=== PATIENT | female | born 1945 | race Caucasian/White ===

== ENCOUNTER 2016-08-30 05:24 | Inpatient (IN) | payer OTHER ==
[2016-08-19 15:11] VITALS: BMI 27.0
--- NOTE | 2016-08-19 15:44 | PAT Medication Instructions ---
Service Date Aug 19, 2016. Current Home Medication List Cholecalciferol (Vitamin D3), 1 TAB PO DAILY PRN for PRN Gabapentin (Neurontin), 300 MG PO BID Hydrocodone/Acetaminophen 5MG/325MG (Ephraim 5MG/325MG), 1-2 TABLETS PO Q4 PRN for Pain Olmesartan/Hctz (Benicar Hct 40/25), 1 TAB PO QAM Simvastatin (Zocor), 20 MG PO QPM Medication Instructions For Your Scheduled Surgery - Hold the following medications the morning of surgery: Olmesartan/Hctz (Benicar Hct 40/25), 1 TAB PO QAM Cholecalciferol (Vitamin D3), 1 TAB PO DAILY PRN for PRN - Take the following medications the morning of surgery with a sip of water: Gabapentin (Neurontin), 300 MG PO BID Hydrocodone/Acetaminophen 5MG/325MG (Ephraim 5MG/325MG), 1-2 TABLETS PO Q4 PRN for Pain (okay to take up to 4 hours prior to surgery if needed) - Take the following medications as scheduled the night before surgery: Simvastatin (Zocor), 20 MG PO QPM Gabapentin (Neurontin), 300 MG PO BID Hydrocodone/Acetaminophen 5MG/325MG (Ephraim 5MG/325MG), 1-2 TABLETS PO Q4 PRN for Pain If you have any questions please call us at [phone] (Germaine Shaffer PA-C) or [phone] or [phone]
[2016-08-19 16:10] LABS: BASO % 0.2 %; BASO ABS # 0.01 K/uL (0-0.2); COMPLETE YES; EOS % 1.6 %; HEMATOCRIT 39.1 % (37-47); LYMPH % 36.9 %; LYMPH ABS # 2.07 K/uL (1.2-3.4); MEAN CELL VOLUME 89.9 fL (80-100); MEAN CORPUSCULAR HEMOGLOBIN 30.6 pg (25-34); MEAN PLATELET VOLUME 10.2 fL (7.4-10.4); MONO % 7.1 %; NEUT % 54.2 %; PLATELET COUNT 245 K/uL (130-400); RED BLOOD COUNT 4.35 M/uL (4.2-5.4); WHITE BLOOD COUNT 5.61 K/uL (4.8-10.8)
[2016-08-19 16:14] LABS: URINE APPEARANCE CLEAR (CLEAR); URINE BILIRUBIN NEG (NEG); URINE COLOR YELLOW; URINE NITRITE NEG (NEG); URINE SPECIFIC GRAVITY 1.013 (1.000-1.030); UROBILINOGEN NEG (NEG)
[2016-08-19 16:16] LABS: MANUAL MICROSCOPIC REQUIRED? NO; REVIEW REQ? NO
[2016-08-19 16:20] LABS: PROTHROMBIN TIME (PATIENT) 10.7 SECONDS (9.0-12.0)
--- NOTE | 2016-08-19 16:20 | DIAGNOSTIC IMAGING REPORT ---
CHEST 2 VIEWS ROUTINE CLINICAL HISTORY: Preoperative chest COMPARISON STUDY: No previous studies for comparison. FINDINGS: The heart is normal in size. There is a prominent right cardiophrenic angle fat pad. There is mild basilar interstitial thickening/atelectasis. There is no lobar consolidation. There is no overt failure. There are no pleural effusions.[ IMPRESSION: Mild bibasal interstitial thickening/atelectasis. Electronically signed by: Avi Gregory M.D. 08/19/2016 4:19 PM Dictated Date/Time: 08/19/2016 4:12 PM
[2016-08-19 16:29] LABS: BUN/CREATININE RATIO 10.5 (10-20); CALCIUM 9.2 mg/dl (8.5-10.1); CREATININE 0.79 mg/dl (0.60-1.20); POTASSIUM 3.8 mmol/L (3.5-5.1)
--- NOTE | 2016-08-27 15:28 | HISTORY & PHYSICAL EXAMINATION ---
DATE OF ADMISSION: 08/30/2016 HISTORY OF PRESENT ILLNESS: She is being preoped for an anterior cervical discectomy 3 levels C3-4, C4-5 and C5-6 cervical spine. She has neck pain, arm pain, trapezius pain without any red flags of fevers, sweats, chills, bowel and bladder issues. PAST MEDICAL HISTORY: Hypertension, usual childhood diseases. No kidney disease, liver disease. No acid reflux. No carcinoma. No diabetes. PAST SURGICAL HISTORY: Cholecystectomy, hysterectomy, appendectomy, total knee replacement. ALLERGIES: Negative. MEDICATIONS: Neurontin, simvastatin and Benicar. SOCIAL HISTORY: She is , rarely drinks, [id number] history of smoking, moderately active, retired. REVIEW OF SYSTEMS: Denies blurred vision, double vision, tinnitus, vertigo. Denies any mentation issues such as depression, denied any shortness breath, chronic cough. No angina, chest pain, palpitations. Denies adenopathy. Denies nausea, vomiting, urgency, frequency, dysuria. OBJECTIVE: GENERAL: She is alert, oriented, 71-year-old female. VITAL SIGNS: Blood pressure 130/80, pulse of 80, respiratory rate 16, temperature 97.4, 5 foot 4, 158 pounds. CARDIAC: Normal S1, S2, no S3. LUNGS: Clear to auscultation. No rales, rhonchi, or wheezing. ABDOMEN: Soft, nontender, bowel sounds present. 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 Images demonstrate severe collapse of the disc interval at C3-4, C4-5 and C5-6. MRI scan supports the plain film. IMPRESSION: Cervical spondylosis, instability and compression cervical spine. DISPOSITION: Includes an ACDF at multiple levels cervical spine C3-4, C4-5 and C5-6.
[~2016-08-30] VITALS: Ht 162.6 cm; Wt 76.6 kg
[2016-08-30] VITALS (28 sets, daily range): BP systolic 116–164; BP diastolic 45–104; PULSE 67–99; TEMP 36.4–36.6; O2SAT 89–99; Ht 162.6 cm; Wt 76.6 kg
[~2016-08-30 05:24] MED LIST: BNC/4025 PO; CHOL1000 PO; GABA1CAP5 PO; HYDR-5688 PO; SIMV20TA2 PO
[2016-08-30] MEDS ORDERED: NSS 1000ML IV SCH (06:00)
[2016-08-30] MEDS: CEFAZOLIN 2000 MG/60 ML D5W 60 ML IV SCH ×2 (06:00→07:32)
[2016-08-30] MEDS ORDERED: LACTATED RINGER'S 1000ML 1,000 ML IV SCH (06:00)
[2016-08-30] MEDS ORDERED: BUPIVACAINE/EPINEPHRINE 0.5% MPF 1:200,000 30 ML VIAL ONE (07:04)
[2016-08-30] MEDS ORDERED: GELATIN SPONGE SZ 100 ONE (07:04)
[2016-08-30] MEDS ORDERED: BACITRACIN 50000 UNIT VIAL ONE (07:04)
[2016-08-30] MEDS ORDERED: THROMBIN FOR SOLN 20000 UNIT KIT ONE (07:04)
--- NOTE | 2016-08-30 07:14 | History & Physical Bridge Note ---
H&P Re-Evaluation Bridge Note: I have examined the patient, reviewed the History & Physical and in the interval since the performance of the History & Physical I have noted the following changes of clinical significance: Iliac crest graft
[2016-08-30] MEDS ORDERED: DEXAMETHASONE SOD INJ 4 MG/ML VIAL ONE (07:16)
[2016-08-30] MEDS ORDERED: ONDANSETRON INJ 2 MG/ML 2 ML VIAL ONE ×2 (07:16→08:33)
[2016-08-30] MEDS ORDERED: LIDOCAINE HCL 2% 2 ML VIAL (20MG/ML) ONE (07:16)
[2016-08-30] MEDS ORDERED: NEOSTIGMINE METHYLSULFATE 5 MG/5 ML SYR ONE (07:16)
[2016-08-30] MEDS ORDERED: PROPOFOL IV EMULSION 10 MG/ML 20 ML VIAL IV ONE (07:16)
[2016-08-30] MEDS ORDERED: ROCURONIUM BROMIDE 10 MG/ML 5 ML VIAL ONE (07:16)
[2016-08-30] MEDS ORDERED: GLYCOPYRROLATE INJ 0.2 MG/ML VIAL ONE (07:16)
[2016-08-30] MEDS ORDERED: FENTANYL CITRATE INJ 50 MCG/1 ML 2 ML VIAL ONE ×3 (07:16→10:33)
[2016-08-30] MEDS ORDERED: KETAMINE HCL INJ 50 MG/ML 10 ML VIAL ONE (08:07)
[2016-08-30] MEDS ORDERED: HYDROmorphone INJ 2 MG/ML SYR/VIAL ONE ×2 (08:08→10:38)
[2016-08-30] MEDS ORDERED: PHENYLEPHRINE HCL INJ 10 MG/ML VIAL ONE (08:53)
--- NOTE | 2016-08-30 10:22 | DIAGNOSTIC IMAGING REPORT ---
Intraoperative lumbar spine single view CLINICAL HISTORY: ACDF C3-6 COMPARISON STUDY: No previous studies for comparison. FINDINGS: 3 seconds of fluoroscopic time was utilized. A single lateral view reveals postsurgical changes of anterior discectomies and fusion at the C3-4, C4-5, and C5-6 levels. The posterior radiopaque marker at the C5-6 level, projects just slightly posterior to the posterior margins of the vertebral bodies. IMPRESSION: Intraoperative radiograph demonstrating anterior cervical discectomy and fusion at the C3-4, C4-5, and C5-6 levels. Electronically signed by: Avi Gregory M.D. 08/30/2016 10:20 AM Dictated Date/Time: 08/30/2016 10:19 AM
[2016-08-30] MEDS ORDERED: ESMOLOL HCL 10 MG/ML 10 ML VIAL ONE (10:27)
[2016-08-30] MEDS ORDERED: LABETALOL HCL IV 5 MG/ML 20ML IV ONE (10:27)
--- NOTE | 2016-08-30 10:28 | [facility] Post Operative Brief Note ---
Immediate Operative Summary Operative Date Aug 30, 2016. Pre-Operative Diagnosis Cervical Spondylosis, herniation Post-Operative Diagnosis Cervical Spondylosis, herniation Procedure(s) Performed C3-C4, C4-C5, C5-C6 Anterior Cervical Discectomy and Fusion with Iliac Crest Bone Graft Surgeon Dr. Vang Corporate Legal Assistant Surgeon(s) Dash Shukla, PAC Estimated Blood Loss 100 ml Findings cord compression Specimens none per surgeon Complication(s) None Disposition Recovery Room / PACU
[2016-08-30] MEDS ORDERED: LORAZEPAM 0.5 MG TAB PO PRN (10:30)
[2016-08-30] MEDS ORDERED: LORAZEPAM INJ 0.5 MG in SYRINGE 0.75 ML IV PRN (10:30)
[2016-08-30] MEDS ORDERED: MAGNESIUM HYDROXIDE SUSP 30 ML UDC PO PRN (10:30)
[2016-08-30] MEDS ORDERED: ACETAMINOPHEN IV 100 ML IV PRN (10:30)
[2016-08-30] MEDS ORDERED: HYDROCODONE/ACETAMOPHEN 5/325MG TAB PO PRN (10:30)
[2016-08-30] MEDS ORDERED: NALOXONE HCL 0.4 MG/1 ML VIAL/CARP IV PRN ×2 (10:30→10:45)
[2016-08-30] MEDS ORDERED: ONDANSETRON INJ 2 MG/ML 2 ML VIAL IV PRN ×2 (10:30→10:45)
[2016-08-30] MEDS ORDERED: RACEPINEPHRINE 2.25% NEBU SOLN 0.5 ML VIAL INH PRN (10:30)
[2016-08-30] MEDS ORDERED: DEXAMETHASONE INJ 8 MG in SYRINGE 0 ML IV PRN (10:30)
[2016-08-30] MEDS ORDERED: HYDROmorphone INJ 0.5 MG/0.5 ML SYR IV PRN (10:30)
[2016-08-30] MEDS: LABETALOL HCL IV 5 MG/ML 20ML IV PRN ×2 (10:40→11:06)
[2016-08-30] MEDS ORDERED: FLUMAZENIL 0.1 MG/1 ML 10 ML VIAL IV PRN (10:45)
[2016-08-30] MEDS ORDERED: EpHEDrine SULFATE INJ 50 MG/ML AMP IV PRN (10:45)
[2016-08-30] MEDS ORDERED: PROMETHAZINE HCL INJ 12.5 MG in SODIUM CHLORIDE 0.9% 50ML 50 ML IV PRN (10:45)
[2016-08-30] MEDS ORDERED: ATROPINE SULFATE 0.1 MG/ML 5ML SYR IV PRN (10:45)
[2016-08-30] MEDS ORDERED: HYDROmorphone INJ 1 MG/ML SYR IV PRN (10:45)
--- NOTE | 2016-08-30 11:53 | Anesthesiology Progress Note ---
Anesthesia Post Op Note Date & Time Aug 30, 2016 at 11:51 Vital Signs Pain Intensity: 0 Vital Signs Past 12 Hours Date Time Temp Pulse Resp B/P Pulse Ox O2 Delivery O2 Flow Rate FiO2 08/30/16 11:20 36.0 64 20 114/59 96 Nasal Cannula 4 08/30/16 11:10 78 20 133/64 96 Nasal Cannula 4 08/30/16 11:00 75 20 151/87 97 Mask 10 08/30/16 10:50 69 20 139/59 97 Mask 10 08/30/16 10:41 65 20 126/53 94 Mask 10 08/30/16 10:34 36.0 72 20 174/60 97 Mask 10 08/30/16 05:58 36.6 76 18 134/45 97 Room Air Notes Mental Status: alert / awake / arousable, participated in evaluation Pt Amnestic to Procedure: Yes Nausea / Vomiting: adequately controlled Pain: adequately controlled Airway Patency, RR, SpO2: stable & adequate BP & HR: stable & adequate Hydration State: stable & adequate Anesthetic Complications: no major complications apparent Pt is w/o difficulty swallowing or breathing.Surgical site appears w/ minimal swelling.
[2016-08-30] MEDS: SODIUM CHLORIDE 0.9% 1000ML 1,000 ML IV SCH (13:06)
[2016-08-30] MEDS ORDERED: IV FLUIDS COMPLETED PRN (15:00)
--- NOTE | 2016-08-30 16:10 | ORTHOPEDICS PROGRESS NOTE ---
DATE OF ADMISSION: 08/30/2016 SUBJECTIVE: Seen, visited and evaluated on rounds at the [facility] ICU bed 2. OBJECTIVE: She is alert stable. Answers appropriately. No shortness of breath. No dysphagia. No chest pain. ASSESSMENT: Status post multilevel C-spine surgery for cord compression. DISPOSITION: Medical management and medical support, cervical collar, we will allow her clear liquids, we will hopefully get her out of bed and up to a regular floor tomorrow which is the 4th and discharge home on the .
[2016-08-30] MEDS: CEFAZOLIN IV 1,000 MG in DEXTROSE 5% 50ML 50 ML IV SCH (16:14)
[2016-08-30] MEDS: DEXAMETHASONE INJ 6 MG in SYRINGE 0 ML IV SCH (16:14)
[2016-08-30] MEDS: HYDROmorphone INJ 1 MG/ML SYR IV PRN ×2 (19:12→22:13)
[2016-08-30] MEDS: DOCUSATE SODIUM 100 MG CAP PO SCH (20:31)
[2016-08-30] MEDS: GABAPENTIN 300 MG CAP PO SCH (20:32)
[2016-08-30] MEDS ORDERED: SIMVASTATIN 20 MG TAB PO SCH (21:00)
[2016-08-31] VITALS (11 sets, daily range): BP systolic 126–169; BP diastolic 63–85; PULSE 92–103; TEMP 36.6–36.9; O2SAT 91–97
[2016-08-31] MEDS: CEFAZOLIN IV 1,000 MG in DEXTROSE 5% 50ML 50 ML IV SCH ×2 (00:20→08:00)
[2016-08-31] MEDS: DEXAMETHASONE INJ 6 MG in SYRINGE 0 ML IV SCH ×2 (00:20→08:00)
[2016-08-31] MEDS: SODIUM CHLORIDE 0.9% 1000ML 1,000 ML IV SCH (02:11)
[2016-08-31] MEDS: HYDROmorphone INJ 1 MG/ML SYR IV PRN (03:16)
--- NOTE | 2016-08-31 07:38 | Anesthesiology Progress Note ---
Anesthesia Post Op Note Date & Time Aug 31, 2016 at 07:38 Vital Signs Pain Intensity: 3.0 Vital Signs Past 12 Hours Date Time Temp Pulse Resp B/P Pulse Ox O2 Delivery O2 Flow Rate FiO2 08/31/16 06:01 103 14 158/85 96 Nasal Cannula 2.0 08/31/16 04:00 Nasal Cannula 2.0 08/31/16 04:00 36.6 97 21 136/63 95 Nasal Cannula 2.0 08/31/16 02:01 100 16 150/84 97 Nasal Cannula 2.0 08/31/16 00:00 36.8 16 126/65 96 Nasal Cannula 2.0 08/31/16 00:00 Nasal Cannula 2.0 08/30/16 23:40 90 16 95 Nasal Cannula 2.0 08/30/16 22:00 97 18 149/75 95 Nasal Cannula 2.0 08/30/16 20:01 87 16 96 Nasal Cannula 2.0 08/30/16 20:00 36.6 99 20 164/97 97 Nasal Cannula 2.0 08/30/16 20:00 97 Nasal Cannula 2.0 08/30/16 20:00 36.6 99 20 164/97 97 Nasal Cannula 2.0 Notes Mental Status: alert / awake / arousable, participated in evaluation Pt Amnestic to Procedure: Yes Nausea / Vomiting: adequately controlled Pain: adequately controlled Airway Patency, RR, SpO2: stable & adequate BP & HR: stable & adequate Hydration State: stable & adequate Anesthetic Complications: no major complications apparent
[2016-08-31] MEDS: DOCUSATE SODIUM 100 MG CAP PO SCH (08:01)
[2016-08-31] MEDS: GABAPENTIN 300 MG CAP PO SCH (08:01)
[2016-08-31] MEDS ORDERED: OLMESARTAN MEDOXOMIL 40 MG TAB PO SCH (09:00)
[2016-08-31] MEDS ORDERED: NON-FORMULARY MEDICATION (Olmesartan/Hctz (Benicar Hct 40/25) 1 TAB) PO SCH (09:00)
[2016-08-31] MEDS ORDERED: HYDROCHLOROTHIAZIDE 25 MG TAB PO SCH (09:00)
[2016-08-31] MEDS: OXYCODONE/ACETAMINOPHEN 5-325 TAB PO PRN ×2 (11:00→16:22)
[2016-08-31] MEDS ORDERED: HYDR-5688 PO (17:21)
--- NOTE | 2016-08-31 18:37 | Discharge Instructions ---
Discharge Instructions Date of Service Aug 31, 2016. Admission Reason for Admission: Cervical Disc Herniation, Degenerative Disc Diseas Discharge Discharge Diagnosis / Problem: cord compression Discharge Goals Goal(s): Improve function Activity Recommendations Activity Limitations: as noted below Lifting Limitations: no more than 5 pounds, until after follow-up appointment Exercise/Sports Limitations: until after follow-up appointment May Resume Sexual Activity: after follow-up appointment Shower/Bathe: keep incision dry Driving or Machine Use: home ,rest, recover . Current Hospital Diet Patient's current hospital diet: Full Liquid Diet Discharge Diet Recommended Diet: Full Liquid Diet Fluid Restriction: None Liquid Consistency: [place] Thick Procedures Procedures Performed: C3-C4, C4-C5, C5-C6 Anterior Cervical Discectomy and Fusion with Iliac Crest Bone Graft Pending Studies Studies pending at discharge: no Medical Emergencies . Who to Call and When: Medical Emergencies: If at any time you feel your situation is an emergency, please call 911 immediately. . Non-Emergent Contact Non-Emergency issues call your: Surgeon Call Non-Emergent contact if: you have any medication questions . "Provider Documentation" section prepared by Yannick Vang. VTE Core Measure Inpt VTE Proph given/why not?: Treatment not indicated
[2016-09-01] MEDS ORDERED: BISACODYL 10 MG SUPP PR PRN (06:00)
[2016-09-01] MEDS ORDERED: BISACODYL 5 MG TABEC PO PRN (06:00)
--- NOTE | 2016-09-01 10:23 | OPERATIVE REPORT ---
DATE OF OPERATION: 08/30/2016 PREOPERATIVE DIAGNOSIS: Spinal cord compression, C3-4, C4-5, C5-6 cervical spine. POSTOPERATIVE DIAGNOSIS: Same. PROCEDURE: Included a 3-level ACDF cervical spine, iliac crest bone grafting. We used implant from the [employer] called [employer]. COMPLICATIONS: Zero. BLOOD LOSS: 100 mL. SURGEON: Dr. Vang. PATIENT EXPERIENCE COORDINATOR: Dash Shukla PA-C. ANESTHESIA: General. OPERATION AND FINDINGS: The patient was taken to the operating room, generally intubated anesthetic provided to the patient, kept supine, scrubbed first, prepped first in her iliac crest and her cervical spine. We made a transverse skin incision roughly over the C5 vertebral body dissecting the soft tissue. We came down into the C4-5 area of the cervical spine. We got all bleeding areas in the approach. We were able to do a formal discectomies at C4-5, C3-4 and C5-6. We used curettes, a bur; it was very tedious dissection getting down to the spinal cord. We had good visibility. There was no apparent spinal cord injury. After we had the discectomies completely performed at the above stated levels, we went to the left iliac crest. We harvested a structural autograft. This structural autograft was used in the vacated discectomy sites as listed above. We also used the [employer] system as well. The fixation was anatomic. We irrigated both wounds carefully. We drained the cervical spine area, we closed in layered fashion with 2-0 Vicryl and 4-0 Monocryl. Cervical spine and the iliac crest was closed with 1 Vicryl, 2-0 and 3-0 nylon. Sterile dressings applied. Cervical collar applied. The patient was transferred to the recovery room in satisfactory stable condition. Again, no apparent complications. Sponge count correct at the close of the procedure. I attest to the content of the Intraoperative Record and any orders documented therein. Any exceptio ns are noted below.
--- NOTE | 2016-09-01 11:09 | DISCHARGE SUMMARY ---
Jaymie was seen in the morning. She was seen in the evening of the 31 of August. She was improved, stable, taking p.o. No chest pain, shortness of breath, or confusion. Her wounds were clean and dry. We changed the dressings. There was some old blood, but there was no recent bleeding on either the iliac crest or the cervical spine. We cleaned the wound, redressed, placed in a cervical collar. She was discharged home with family members on the evening of the . She was improved, stable. Her one daughter is a registered nurse. She voiced stated that she was well comfortable taking care of her mother. She will wear the collar. Instructions and precautions given, and explained to the family if any chest pain, shortness of breath, to call 911. For routine calls, give us give us a call here. We should see her back in the office in 12-14 days.
== END 2016-08-31 19:09 | disposition home or self-care (01) | DRG 473 ==
LOC: ENRESERVDT → ENRESERVTM → C.ACU 05:24 → EDBEDREQSVC 11:11 → C.MSICU 12:46 → C.3E 08-31 10:38
PROVIDERS: ADMIT Orthopaedic Surgery Orthopaedic Surgery of the Spine; ATTEND Orthopaedic Surgery Orthopaedic Surgery of the Spine
PROC: 0RG2070 Fusion of 2 or more Cervical Vertebral Joints with Autologous Tissue Substitute, Anterior Approach, Anterior Column, Open Approach (ICD-10-PCS; principal; 2016-08-30 07:30)
PROC: 0QB30ZZ Excision of Left Pelvic Bone, Open Approach (ICD-10-PCS; principal; 2016-08-30 07:30)
PROC: 0RT30ZZ Resection of Cervical Vertebral Disc, Open Approach (ICD-10-PCS; principal; 2016-08-30 07:30)
DX: M47.12 Other spondylosis with myelopathy, cervical region (principal); I10 Essential (primary) hypertension; Z96.659 Presence of unspecified artificial knee joint; F17.210 Nicotine dependence, cigarettes, uncomplicated